=== PATIENT | female | born 1955 | race Caucasian/White ===

== ENCOUNTER 2018-02-05 19:35 | Inpatient (IN) | payer OTHER ==
[~2018-02-05] VITALS: Ht 162.6 cm; Wt 56.8 kg
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
[2018-02-05 20:04] LABS: BASOPHILS 0.1 % (0-2); EOSINOPHILS 0.1 % (0-7); HEMATOCRIT 36.5 % (36.0-48.0); HEMOGLOBIN 12.1 g/dL (12-16); IMMATURE GRANULOCYTES 0.3 % (0-5); LYMPHOCYTES 16.8 % (15-50); MCH 30.7 pg (26.0-34.0); MCHC 33.2 g/dL (31.0-37.0); MCV 92.6 fL (80.0-100.0); MEAN PLATELET VOLUME 9.6 fL (7.4-10.4); NEUTROPHILS 75.7 % (40-80); PLATELET COUNT 194 10x3/uL (130-400); RBC 3.94 10x6/uL (4.00-5.40); RDW 12.8 % (11.5-14.5); WBC 18.2 10x3/uL (4.8-10.8)
[2018-02-05 20:19] LABS: ALBUMIN 3.4 g/dL (3.4-5.0); ANION GAP 16.6 mmol/L (8-16); BILIRUBIN - TOTAL 0.36 mg/dL (0.2-1.3); CARBON DIOXIDE 21.5 mmol/L (21.0-32.0); CREATININE - SERUM 0.9 mg/dL (0.6-1.3); POTASSIUM - SERUM 3.1 mmol/L (3.5-5.1); PROTEIN - SERUM 7.1 g/dL (6.4-8.2)
[2018-02-05 21:51] LABS: APPEARANCE CLEAR (CLEAR); BILIRUBIN NEGATIVE (NEGATIVE); COLOR YELLOW (YELLOW); GLUCOSE NEGATIVE (NEGATIVE); KETONE NEGATIVE (NEGATIVE); NITRITE NEGATIVE (NEGATIVE); PROTEIN NEGATIVE (NEGATIVE); UROBILINOGEN NORMAL (NORMAL)
[2018-02-06] VITALS (15 sets, daily range): BP systolic 108–140; BP diastolic 52–67; Ht 162.6 cm; Wt 56.8 kg
[2018-02-06 03:49] LABS: BASOPHILS 0.1 % (0-2); EOSINOPHILS 0 % (0-7); IMMATURE GRANULOCYTES 0.2 % (0-5); LYMPHOCYTES 14.5 % (15-50); MCH 29.7 pg (26.0-34.0); MCHC 31.9 g/dL (31.0-37.0); MCV 92.9 fL (80.0-100.0); MEAN PLATELET VOLUME 9.1 fL (7.4-10.4); MONOCYTES 5.3 % (2-11); NEUTROPHILS 79.9 % (40-80); PLATELET COUNT 176 10x3/uL (130-400); RDW 13.1 % (11.5-14.5)
[2018-02-06 03:50] LABS: HEMATOCRIT 28.8 % (36.0-48.0); HEMOGLOBIN 9.2 g/dL (12-16)
[2018-02-06 06:13] LABS: CALCIUM 7.6 mg/dL (8.5-10.1); CARBON DIOXIDE 21.2 mmol/L (21.0-32.0); CHLORIDE - SERUM 108 mmol/L (98-107); CREATININE - SERUM 0.8 mg/dL (0.6-1.3); GLUCOSE 187 mg/dL (74-106); SODIUM 142 mmol/L (136-145); eGFR NON AFRICAN AMERICAN 77 mL/min (90-120)
[2018-02-06 06:17] LABS: CALC OSMOLALITY 288 mosm/kg (275-300); CREATINE KINASE 980 UL (21-215); POTASSIUM - SERUM 4.3 mmol/L (3.5-5.1); UREA NITROGEN 16 mg/dL (7-18)
[2018-02-06 06:18] LABS: CKMB 12.2 U/L (0.0-3.6)
[2018-02-06 14:02] LABS: BASOPHILS 0.1 % (0-2); EOSINOPHILS 0 % (0-7); HEMOGLOBIN 9.2 g/dL (12-16); IMMATURE GRANULOCYTES 0.3 % (0-5); LYMPHOCYTES 17.8 % (15-50); MCHC 31.7 g/dL (31.0-37.0); MCV 94.5 fL (80.0-100.0); MEAN PLATELET VOLUME 9.9 fL (7.4-10.4); MONOCYTES 11.6 % (2-11); NEUTROPHILS 70.2 % (40-80); PLATELET COUNT 166 10x3/uL (130-400); RBC 3.07 10x6/uL (4.00-5.40); RDW 13.4 % (11.5-14.5)
[2018-02-07 01:39] VITALS: BP 148/74
[2018-02-07 04:14] VITALS: BP 133/64
[2018-02-07 07:15] LABS: BASOPHILS 0.1 % (0-2); EOSINOPHILS 0.1 % (0-7); HEMATOCRIT 25.3 % (36.0-48.0); HEMOGLOBIN 8.1 g/dL (12-16); IMMATURE GRANULOCYTES 0.1 % (0-5); LYMPHOCYTES 21.9 % (15-50); MCH 29.5 pg (26.0-34.0); MEAN PLATELET VOLUME 9.1 fL (7.4-10.4); MONOCYTES 10.7 % (2-11); NEUTROPHILS 67.1 % (40-80); PLATELET COUNT 155 10x3/uL (130-400); RBC 2.75 10x6/uL (4.00-5.40); RDW 13.4 % (11.5-14.5); WBC 9.2 10x3/uL (4.8-10.8)
[2018-02-07 07:22] LABS: CALCIUM 7.5 mg/dL (8.5-10.1); CARBON DIOXIDE 24.5 mmol/L (21.0-32.0); CHLORIDE - SERUM 110 mmol/L (98-107); CREATININE - SERUM 0.6 mg/dL (0.6-1.3); SODIUM 141 mmol/L (136-145); eGFR NON AFRICAN AMERICAN > 90 mL/min (90-120)
[2018-02-07 07:24] LABS: CALC OSMOLALITY 279 mosm/kg (275-300); GLUCOSE 119 mg/dL (74-106); POTASSIUM - SERUM 3.1 mmol/L (3.5-5.1); UREA NITROGEN 8 mg/dL (7-18)
[2018-02-07 09:35] VITALS: BP 130/69
[2018-02-07 12:25] VITALS: BP 145/68
[2018-02-07 22:58] VITALS: BP 144/60
[2018-02-08 05:21] LABS: BASOPHILS 0.2 % (0-2); EOSINOPHILS 0.8 % (0-7); HEMATOCRIT 23.1 % (36.0-48.0); HEMOGLOBIN 7.7 g/dL (12-16); IMMATURE GRANULOCYTES 0.2 % (0-5); LYMPHOCYTES 29.1 % (15-50); MCH 30.6 pg (26.0-34.0); MCHC 33.3 g/dL (31.0-37.0); MCV 91.7 fL (80.0-100.0); NEUTROPHILS 60.7 % (40-80); PLATELET COUNT 147 10x3/uL (130-400); RBC 2.52 10x6/uL (4.00-5.40); RDW 13.1 % (11.5-14.5); WBC 10.1 10x3/uL (4.8-10.8)
[2018-02-08 05:35] LABS: CALCIUM 7.8 mg/dL (8.5-10.1); CARBON DIOXIDE 28.1 mmol/L (21.0-32.0); CHLORIDE - SERUM 108 mmol/L (98-107); CREATININE - SERUM 0.6 mg/dL (0.6-1.3); GLUCOSE 126 mg/dL (74-106); SODIUM 143 mmol/L (136-145); eGFR NON AFRICAN AMERICAN > 90 mL/min (90-120)
[2018-02-08 05:40] VITALS: BP 127/59
[2018-02-08 05:41] LABS: CALC OSMOLALITY 283 mosm/kg (275-300); POTASSIUM - SERUM 2.9 mmol/L (3.5-5.1); UREA NITROGEN 5 mg/dL (7-18)
[2018-02-08 09:07] LABS: MAGNESIUM - SERUM 1.8 mg/dL (1.8-2.4); PHOSPHOROUS 1.7 mg/dL (2.5-4.9)
[2018-02-08 09:20] VITALS: BP 138/68
[2018-02-08 17:01] VITALS: BP 149/75; BP 189/71
[2018-02-08 22:17] VITALS: BP 125/68
[2018-02-09 03:56] VITALS: BP 150/74
[2018-02-09 05:37] LABS: BASOPHILS 0.2 % (0-2); IMMATURE GRANULOCYTES 0.3 % (0-5); LYMPHOCYTES 25.1 % (15-50); MCH 30.1 pg (26.0-34.0); MCHC 33.6 g/dL (31.0-37.0); MCV 89.8 fL (80.0-100.0); MEAN PLATELET VOLUME 9.4 fL (7.4-10.4); MONOCYTES 9.2 % (2-11); NEUTROPHILS 61.2 % (40-80); PLATELET COUNT 140 10x3/uL (130-400); RDW 13.7 % (11.5-14.5); WBC 9.3 10x3/uL (4.8-10.8)
[2018-02-09 05:49] LABS: CALCIUM 8.2 mg/dL (8.5-10.1); CHLORIDE - SERUM 107 mmol/L (98-107); CREATININE - SERUM 0.6 mg/dL (0.6-1.3); GLUCOSE 96 mg/dL (74-106); SODIUM 141 mmol/L (136-145); eGFR NON AFRICAN AMERICAN > 90 mL/min (90-120)
[2018-02-09 05:54] LABS: HEMATOCRIT 29.8 % (36.0-48.0); RBC 3.32 10x6/uL (4.00-5.40)
[2018-02-09 06:01] LABS: CALC OSMOLALITY 278 mosm/kg (275-300); POTASSIUM - SERUM 3.4 mmol/L (3.5-5.1); UREA NITROGEN 7 mg/dL (7-18)
[2018-02-09 08:06] VITALS: BP 188/82
[2018-02-09 12:44] VITALS: BP 142/59
[2018-02-09 14:28] LABS: APPEARANCE CLEAR (CLEAR); BACTERIA FEW /hpf (NONE SEEN); BILIRUBIN NEGATIVE (NEGATIVE); COLOR YELLOW (YELLOW); EPITHELIAL CELLS OCC /hpf (0-5); GLUCOSE NEGATIVE (NEGATIVE); KETONE NEGATIVE (NEGATIVE); MUCUS <1+ /lpf (NONE SEEN); NITRITE NEGATIVE (NEGATIVE); PROTEIN NEGATIVE (NEGATIVE); RED CELLS - URINE 0-5 /hpf (0-5); SPECIFIC GRAVITY 1.005 (1.005-1.020); WHITE CELLS - URINE RARE /hpf (0-5)
[2018-02-09 16:25] VITALS: BP 162/65
[2018-02-09 21:38] VITALS: BP 139/69
[2018-02-10 03:50] VITALS: BP 148/70
[2018-02-10 05:39] LABS: BASOPHILS 0.1 % (0-2); EOSINOPHILS 2.6 % (0-7); HEMOGLOBIN 10.9 g/dL (12-16); IMMATURE GRANULOCYTES 0.5 % (0-5); LYMPHOCYTES 25.9 % (15-50); MCH 30.1 pg (26.0-34.0); MCV 91.2 fL (80.0-100.0); MEAN PLATELET VOLUME 9.7 fL (7.4-10.4); MONOCYTES 9.3 % (2-11); NEUTROPHILS 61.6 % (40-80); RBC 3.62 10x6/uL (4.00-5.40); RDW 13.5 % (11.5-14.5); WBC 10.2 10x3/uL (4.8-10.8)
[2018-02-10 05:51] LABS: CALC OSMOLALITY 281 mosm/kg (275-300); CALCIUM 8.7 mg/dL (8.5-10.1); CARBON DIOXIDE 29.7 mmol/L (21.0-32.0); CHLORIDE - SERUM 104 mmol/L (98-107); CREATININE - SERUM 0.7 mg/dL (0.6-1.3); GLUCOSE 106 mg/dL (74-106); POTASSIUM - SERUM 3.7 mmol/L (3.5-5.1); SODIUM 142 mmol/L (136-145); eGFR NON AFRICAN AMERICAN 90 mL/min (90-120)
[2018-02-10 05:53] LABS: PLATELET COUNT 205 10x3/uL (130-400)
[2018-02-10 06:01] LABS: UREA NITROGEN 9 mg/dL (7-18)
[2018-02-10 08:14] VITALS: BP 147/76
[2018-02-10] MEDS ORDERED: ELIQUIS2.5 MG PO (12:18)
[2018-02-10] MEDS ORDERED: BACTRIM DS TABL1 TAB PO (12:19)
[2018-02-10] MEDS ORDERED: DILAUDID2 MG PO (12:19)
== END 2018-02-10 17:26 | disposition home or self-care (01) | DRG 481 ==
LOC: D.ER 19:35 → D.EDHOLD 21:22 → D.MS 21:22
PROVIDERS: Family Medicine; Internal Medicine Nephrology; Orthopaedic Surgery Foot and Ankle Surgery
PROC: 0QS806Z Reposition Right Femoral Shaft with Intramedullary Internal Fixation Device, Open Approach (ICD-10-PCS; principal; 2018-02-06)
DX: S72.301A Unspecified fracture of shaft of right femur, initial encounter for closed fracture (principal); D62 Acute posthemorrhagic anemia; V86.55XA Driver of 3- or 4- wheeled all-terrain vehicle (ATV) injured in nontraffic accident, initial encounter; S43.402A Unspecified sprain of left shoulder joint, initial encounter; S80.812A Abrasion, left lower leg, initial encounter; S80.811A Abrasion, right lower leg, initial encounter; R00.0 Tachycardia, unspecified; E87.6 Hypokalemia

== ENCOUNTER 2018-05-09 06:50 | Inpatient (IN) | payer MEDICAID ==
[2018-05-06 09:05] LABS: HEMATOCRIT 40.5 % (36.0-48.0); HEMOGLOBIN 13.4 g/dL (12-16); MCH 30.1 pg (26.0-34.0); MCHC 33.1 g/dL (31.0-37.0); RBC 4.45 10x6/uL (4.00-5.40); RDW 13.3 % (11.5-14.5); WBC 8.8 10x3/uL (4.8-10.8)
[2018-05-09] VITALS (13 sets, daily range): BP systolic 90–128; BP diastolic 42–81; Ht 162.6 cm; Wt 54.5 kg
[~2018-05-09] VITALS: Ht 162.6 cm; Wt 54.5 kg
--- NOTE | ~2018-05-09 | OP ---
PATIENT NAME: MARLY MCMILLAN MEDICAL RECORD: [id number] :53 LOCATION:[facility] ADMISSION DATE:05/09/18 SURGEON: PEYTON SHAVER MD DATE OF OPERATION: 05/09/2018 PREOPERATIVE DIAGNOSES: Malunion/nonunion, right distal femur fracture status post antegrade nailing. POSTOPERATIVE DIAGNOSES: Malunion/nonunion, right distal femur fracture status post antegrade nailing. PROCEDURES: 1. Revision intramedullary nailing of the right distal femur fracture. 2. Removal of previously placed hardware. SURGEON: Peyton Shaver MD ANESTHESIA: General. INTRAOPERATIVE COMPLICATIONS: None. SUMMARY OF PATHOLOGIC FINDINGS: The patient had a significant valgus deformity that was correctable with a larger retrograde nail after the antegrade nail was taken out. INDICATIONS: Marly Mcmillan is a patient who had a distal femur fracture that was fixed with antegrade nailing. She had substantial hip pain and radiographic evidence of valgus deformity as well as anterior cut out of the antegrade nail that was put in place. After discussing the risks, hazards and benefits associated with this, the patient wishes to proceed with surgical refixation. IMPLANTS USED: [place] T2 retrograde femoral nail size 14 x 300 with the appropriate locking screws. OPERATIVE SUMMARY IN DETAIL: After obtaining the appropriate preoperative orthopedic surgery consent as well as anesthetic consultation, evaluation and clearance, the patient was brought to the operating room and placed on the operating table in supine position. After adequate general endotracheal anesthesia was administered, the patient was placed in a left lateral decubitus position. All pressure points were padded to include down leg peroneal pad as well as axillary roll. The patient was held firmly to the operating table using vacuum pack suction system. Right lower extremity and hip were then prepped and draped in routine sterile fashion. Under direct fluoroscopic guidance, all interlocking screws were removed first at the hip and then the distal 2 screws were also removed after small incisions were made in the areas. Small incision was made above the tip of the greater trochanter. Dissection was carried down to the nail itself after cleaning the soft tissue from the nail. [place] removal device was utilized to grab the nail and the nail was removed. Having completed this, the wounds were copiously irrigated and closed in usual fashion. At this point, sterile dressings were applied. The patient was then returned to supine position. The entire right lower extremity was then prepped and draped in a routine sterile fashion. Again, incision was made from the inferior aspect of the patella pole down to the midline of the patella tendon. Guidewire was then placed just above Blumensaat's line as seen on lateral planes, and then on AP and lateral planes, the guidewire was placed into the distal aspect of the OPERATIVE REPORT [id number] KRISTANMARLY knee for appropriate positioning. Primary reaming was then followed by placement of the ball-tipped guidewire across the fracture site. Serial and sequential reaming was done to a 14.5 while the knees valgus deformity was held corrected. Having completed this, a 14 mm x 300 mm nail was put into place again very slowly with the knee held in the corrected position. The valgus deformity was corrected substantially, recurvatum was corrected to approximately neutral. Having completed this, a ball tip guidewire was removed. Distal intramedullary locking was done at the 2 and 4-hole on the T2 retrograde nailing system and then the proximal A to P locking was done again under direct fluoroscopic visualization. Having completed this, final radiographs were taken and submitted for radiologist review. The wounds were then irrigated and again closed, sterile dressings were applied. The patient was awakened and taken to the recovery room in stable condition. All final needle and sponge counts were correct. TRANSINT:[id number] Voice Confirmation ID: [id number] DOCUMENT ID: [id number] PEYTON SHAVER MD at 0828 CC: [id number] DICTATION DATE: 05/10/18 1503 SOCIAL SERVICES MANAGER: 05/10/18 1534 DIS IN 05/11/18 [facility] [id number] [place] [address]
[~2018-05-09 06:50] MED LIST: BACTRIM DS TABL1 TAB PO; BAYER CHEWABLE81 MG PO; DILAUDID2 MG PO; ELIQUIS2.5 MG PO; MULTIPLE VITAMI1 TA1 PO; NORCO 7.5/325 T1 TA1 PO
[2018-05-10 02:35] VITALS: BP 135/58
[2018-05-10 04:32] LABS: HEMATOCRIT 35.1 % (36.0-48.0); HEMOGLOBIN 11.7 g/dL (12-16)
[2018-05-10 08:32] VITALS: BP 145/71
[2018-05-10 11:54] VITALS: BP 110/57
[2018-05-10 17:38] VITALS: BP 120/53
[2018-05-10 20:00] VITALS: BP 123/60
[2018-05-11] VITALS: BP 135/66
[2018-05-11 04:00] VITALS: BP 128/55
[2018-05-11 04:43] LABS: HEMATOCRIT 27.9 % (36.0-48.0)
[2018-05-11] MEDS ORDERED: ELIQUIS2.5 MG PO (08:41)
[2018-05-11] MEDS ORDERED: HYDROCODONE-APA1 TAB PO (08:41)
[2018-05-11 09:53] VITALS: BP 133/83
[2018-05-11 13:08] VITALS: BP 146/95
== END 2018-05-11 15:15 | disposition home health service (06) | DRG 482 ==
LOC: D.MS 06:50 → D.SDCHOLD 06:50 → D.MS 12:18
PROVIDERS: Anesthesiology; Orthopaedic Surgery
PROC: 0QHB36Z Insertion of Intramedullary Internal Fixation Device into Right Lower Femur, Percutaneous Approach (ICD-10-PCS; principal; 2018-05-09 09:00)
DX: S72.301K Unspecified fracture of shaft of right femur, subsequent encounter for closed fracture with nonunion (principal); X58.XXXD Exposure to other specified factors, subsequent encounter; S72.91 Unspecified fracture of right femur

== ENCOUNTER 2019-06-12 08:34 | Emergency (ER) | payer MEDICARE, MEDICAID ==
[~2019-06-12] VITALS: Ht 162.6 cm; Wt 59.1 kg
[~2019-06-12 08:34] MED LIST changes: +HYDROCODONE-APA1 TAB PO
[2019-06-12 08:41] VITALS: Ht 162.6 cm; Wt 59.1 kg
[2019-06-12 10:36] LABS: ALKALINE PHOSPHATASE 79 U/L (46-116); ALT (SGPT) 26 U/L (10-68); BILIRUBIN - TOTAL 0.46 mg/dL (0.2-1.3); CALC OSMOLALITY 280 mosm/kg (275-300); CALCIUM 9.3 mg/dL (8.5-10.1); CHLORIDE - SERUM 106 mmol/L (98-107); CREATININE - SERUM 0.8 mg/dL (0.6-1.3); GLUCOSE 81 mg/dL (74-106); POTASSIUM - SERUM 3.9 mmol/L (3.5-5.1); PROTEIN - SERUM 8.2 g/dL (6.4-8.2); SODIUM 141 mmol/L (136-145); UREA NITROGEN 16 mg/dL (7-18); eGFR NON AFRICAN AMERICAN 76 mL/min (90-120)
[2019-06-12 11:31] LABS: BASOPHILS 0.2 % (0-2); EOSINOPHILS 0.5 % (0-7); HEMATOCRIT 41.1 % (36.0-48.0); HEMOGLOBIN 13.9 g/dL (12-16); IMMATURE GRANULOCYTES 0.2 % (0-5); MCH 30.8 pg (26.0-34.0); MCHC 33.8 g/dL (31.0-37.0); MCV 90.9 fL (80.0-100.0); MEAN PLATELET VOLUME 9.3 fL (7.4-10.4); NEUTROPHILS 58.1 % (40-80); PLATELET COUNT 275 10x3/uL (130-400); RBC 4.52 10x6/uL (4.00-5.40); RDW 13.8 % (11.5-14.5); WBC 9.7 10x3/uL (4.8-10.8)
[2019-06-12] MEDS ORDERED: SKELAXIN800 MG PO (12:02)
[2019-06-12] MEDS ORDERED: NAPROSYN500 MG PO (12:02)
[2019-06-12 12:30] VITALS: BP 163/83
== END 2019-06-12 12:12 | disposition home or self-care (01) ==
LOC: D.ER 08:34
PROVIDERS: Family Medicine
DX: G44.229 Chronic tension-type headache, not intractable (principal)